=== PATIENT | female | born 1945 | race Caucasian/White ===

== ENCOUNTER 2022-02-05 11:10 | Day surgery (SDC) | payer MEDICARE, MEDICAID ==
[2022-01-28 14:31] LABS: ALBUMIN 2.7 G/DL (3.4-5.0); ANION GAP 5 (8-16); BLOOD UREA NITROGEN 16 MG/DL (7-18); BUN/CREATININE RATIO 15.4 (6.6-38.0); CALCIUM 9.7 MG/DL (8.5-10.1); CHLORIDE 109 MMOL/L (99-107); CREATININE 1.04 MG/DL (0.40-0.90); GLUCOSE 77 MG/DL (70-104); POTASSIUM 3.6 MMOL/L (3.5-5.1); SODIUM 145 MMOL/L (135-145); TOTAL CARBON DIOXIDE 31.5 MMOL/L (24-32); eGFR 51 ML/MIN
[2022-01-28 14:33] LABS: APTT 31 SECONDS (22-32); BASOPHILS % (AUTO) 0.8 % (0-1); EOSINOPHILS # (AUTO) 0.1 X10'3 (0-0.9); EOSINOPHILS % (AUTO) 3.6 % (0-6); HEMATOCRIT 41.1 % (35.0-45.0); HEMOGLOBIN 13.6 g/dl (12.0-16.0); LYMPHOCYTES # (AUTO) 1.6 X10'3 (1.1-4.8); LYMPHOCYTES % (AUTO) 38.6 % (21-51); MEAN CORPUSCULAR HEMOGLOBIN 33.4 PG (27.0-31.0); MEAN CORPUSCULAR HGB CONC 33.1 g/dL (33.0-36.5); MEAN CORPUSCULAR VOLUME 100.8 FL (78-98); MEAN PLATELET VOLUME 8.1 FL (7.4-10.4); MONOCYTES # (AUTO) 0.4 X10'3 (0-0.9); MONOCYTES % (AUTO) 10.4 % (2-12); NEUTROPHILS # (AUTO) 1.9 X10'3 (1.8-7.7); NEUTROPHILS % (AUTO) 46.6 % (42-75); PLATELET COUNT 195 X10'3 (140-440); RED BLOOD COUNT 4.08 X10'6 (4.20-5.60); RED CELL DISTRIBUTION WIDTH 14.8 % (11.5-14.5); WHITE BLOOD COUNT 4.1 X10'3 (4.5-11.0)
[2022-02-05] VITALS (13 sets, daily range): BP systolic 130–153; BP diastolic 66–99
[~2022-02-05] VITALS: Ht 167.6 cm; Wt 79.0 kg
[~2022-02-05 11:10] MED LIST: APIX5TAB3 PO; ASPI-1071 PO; FOLI1TAB27 PO; FURO40TA4 PO; LACT10SO32 PO; METO25TA6 PO; MULT-25 PO; PANT20TA18 PO; POTA-82 PO; TRAZ-251 PO; thiamine tablet PO
[2022-02-05] MEDS ORDERED: MIDAZolam 1mg/ml 10ml vial IV ONE (11:25)
[2022-02-05] MEDS ORDERED: fentaNYL/PF 50MCG/1 ML 2ML syringe IV ONE ×2 (11:25→12:05)
[2022-02-05] MEDS ORDERED: normal saline 1000ml 1,000 ML IV SCH (11:25)
[2022-02-05] MEDS ORDERED: HYDR50TA65 PO (11:36)
[2022-02-05] MEDS ORDERED: POTA-207 PO (11:36)
[2022-02-05] MEDS ORDERED: SOTA80TA PO (11:36)
[2022-02-05] MEDS ORDERED: ASPI-1397 PO (11:36)
[2022-02-05] MEDS ORDERED: CYCL5TAB PO (11:36)
[2022-02-05] MEDS ORDERED: LACT10SO66 PO (11:36)
[2022-02-05] MEDS ORDERED: ONDA-103 (11:36)
[2022-02-05] MEDS ORDERED: WARF10TA PO (11:37)
[2022-02-05] MEDS ORDERED: FURO-149 PO (11:38)
[2022-02-05] MEDS ORDERED: FOLI0.4T6 PO (11:43)
[2022-02-05] MEDS ORDERED: APIX5TAB3 PO (11:43)
[2022-02-05] MEDS ORDERED: LACT10SO3 PO (11:43)
--- NOTE | 2022-02-05 12:05 | NUR ---
Removed fentanyl ampule from [facility] for cardioversion. Ampule was not filled with correct volume. RN only able to draw up 1.5 mL (75 mcg). Notified pharmacy and was instructed to waste this dosage and remove a new ampule. Wasted 75 mcg (1.5 mL) with Panchito Estes RN.
== END 2022-02-05 15:55 | disposition home or self-care (01) ==
LOC: SSTAY O 11:10
PROVIDERS: ATTEND Student in an Organized Health Care Education/Training Program
DX: I48.91 Unspecified atrial fibrillation (principal); I11.0 Hypertensive heart disease with heart failure; I50.9 Heart failure, unspecified; Z86.73 Personal history of transient ischemic attack (TIA), and cerebral infarction without residual deficits; Z79.899 Other long term (current) drug therapy; Z79.82 Long term (current) use of aspirin; Z98.890 Other specified postprocedural states
CPT/HCPCS: 36415; 80048; 85025; 85610; 85730; 92960; 93005; J2250; J3010; J7030; A4620

== ENCOUNTER 2023-01-07 11:33 | Day surgery (SDC) | payer MEDICARE, MEDICAID ==
[2023-01-03 16:04] LABS: BASOPHILS % (AUTO) 0.4 % (0-1); EOSINOPHILS # (AUTO) 0.1 X10'3 (0-0.9); EOSINOPHILS % (AUTO) 2.6 % (0-6); HEMATOCRIT 42.7 % (35.0-45.0); HEMOGLOBIN 14.3 g/dl (12.0-16.0); LYMPHOCYTES # (AUTO) 1.9 X10'3 (1.1-4.8); LYMPHOCYTES % (AUTO) 35.8 % (21-51); MEAN CORPUSCULAR HEMOGLOBIN 33.1 PG (27.0-31.0); MEAN CORPUSCULAR HGB CONC 33.6 g/dL (33.0-36.5); MEAN CORPUSCULAR VOLUME 98.7 FL (78-98); MEAN PLATELET VOLUME 8.6 FL (7.4-10.4); MONOCYTES # (AUTO) 0.5 X10'3 (0-0.9); MONOCYTES % (AUTO) 8.9 % (2-12); NEUTROPHILS # (AUTO) 2.8 X10'3 (1.8-7.7); NEUTROPHILS % (AUTO) 52.3 % (42-75); PLATELET COUNT 153 X10'3 (140-440); RED BLOOD COUNT 4.33 X10'6 (4.20-5.60); RED CELL DISTRIBUTION WIDTH 15.9 % (11.5-14.5); WHITE BLOOD COUNT 5.4 X10'3 (4.5-11.0)
[2023-01-03 16:15] LABS: ALBUMIN 2.8 G/DL (3.4-5.0); ANION GAP 5 (8-16); BLOOD UREA NITROGEN 20 MG/DL (7-18); BUN/CREATININE RATIO 13.8 (10.0-20.0); CALCIUM 9.7 MG/DL (8.5-10.1); CHLORIDE 106 MMOL/L (99-107); CREATININE 1.45 MG/DL (0.40-0.90); GLUCOSE 96 MG/DL (70-104); POTASSIUM 3.8 MMOL/L (3.5-5.1); SODIUM 140 MMOL/L (135-145); TOTAL CARBON DIOXIDE 28.8 MMOL/L (24-32); eGFR 35 ML/MIN
[2023-01-03 16:17] LABS: APTT 29 SECONDS (22-32); INR 1.1 INR; PROTHROMBIN TIME 11.4 SECONDS (9.0-12.0)
[2023-01-07] VITALS (11 sets, daily range): BP systolic 87–115; BP diastolic 38–63; PULSE 81–104; RESP 10–14; TEMP 98; O2SAT 10–100
[~2023-01-07] VITALS: Ht 167.6 cm; Wt 72.3 kg
[~2023-01-07 11:33] MED LIST changes: -ASPI-1071 PO; +EMPA10TA PO; +LACT10SO3 PO; -LACT10SO32 PO; +METO-395 PO; -METO25TA6 PO; -MULT-25 PO; -PANT20TA18 PO; -POTA-82 PO; +RIFA550T PO; +SACU1TAB PO; +SPIR25TA PO; +THIA100T66 PO; -TRAZ-251 PO; -thiamine tablet PO
[2023-01-07] MEDS ORDERED: MIDAZolam 1mg/ml 10ml vial IV ONE (11:50)
[2023-01-07] MEDS ORDERED: normal saline 1000ml 1,000 ML IV SCH (11:50)
[2023-01-07] MEDS ORDERED: fentaNYL/PF 50MCG/1 ML 2ML syringe IV ONE (11:50)
[2023-01-07] MEDS ORDERED: CYCL-1 PO (12:03)
[2023-01-07] MEDS ORDERED: SPIR25TA5 PO (12:03)
[2023-01-07] MEDS ORDERED: ONDA-103 PO (12:03)
[2023-01-07] MEDS ORDERED: SACU1TAB7 PO (12:03)
[2023-01-07] MEDS ORDERED: METO-539 PO (12:04)
== END 2023-01-07 14:30 | disposition home or self-care (01) ==
LOC: SSTAY O 11:33
PROVIDERS: ATTEND Student in an Organized Health Care Education/Training Program
DX: I48.91 Unspecified atrial fibrillation (principal); I11.0 Hypertensive heart disease with heart failure; I50.9 Heart failure, unspecified; I25.2 Old myocardial infarction; I44.7 Left bundle-branch block, unspecified; Z72.89 Other problems related to lifestyle; Z86.73 Personal history of transient ischemic attack (TIA), and cerebral infarction without residual deficits; Z79.899 Other long term (current) drug therapy; Z79.01 Long term (current) use of anticoagulants; Z88.5 Allergy status to narcotic agent; Z88.8 Allergy status to other drugs, medicaments and biological substances
CPT/HCPCS: 36415; 80048; 85025; 85610; 85730; 92960; J2250; J3010; J7030; 93005; A4620